=== PATIENT | male | born 1950 | race Caucasian/White ===

== ENCOUNTER → 2018-02-27 | Outpatient (CLI) | payer MEDICARE ==
[~2018-02-27] MED LIST: AMLO10 PO; ASPI325 PO; ASPI325EC PO; ATOR80 PO; Abilify2 MG PO; Abilify5 MG PO; Accupril40 MG PO; Aspirin EC325 MG PO; Augmentin 875-1 EACH PO; CENTRUM COMPLE1 EACH PO; CENTRUM SILVER1 EAC2 PO; CHOL10002 PO; COQ1050 MG PO; Carvedilol12.5 MG PO; Coreg12.5 MG PO; DESVENLAFAXINE50 M2 PO; FENO145 PO; FISH OIL 1,0001 EAC1 PO; FISH1000 PO; FOLI1 PO; FOLI400 PO; FURO20 PO; GABA300 PO; GLIM4 PO; HYDCHL12.5 PO; INVOKANA100 MG PO; K-Dur20 MEQ PO; METF500C PO; METFORMIN HCL1000 M1 PO; Multiple Vitam1 EAC1 PO; NITRO-STAT SL; Neurontin300 MG PO; Nitrostat0.4 MG SL; OXYC5 PO; PIOG45 PO; PROM25 PO; Percocet 5-3251 EACH PO; QUIN10 PO; ROXICODONE5 MG; ROXICODONE5 MG PO; UBID100 PO; VENL150ER; VENL75ER PO; VENLAFAXINE HC150 MG PO; VITAMIN C500 M1 PO; Vitamin C1000 M1 PO
[2018-02-27 17:09] LABS: BASOPHILS ABSOLUTE AUTO 0.03 K/mm3 (0.00-0.23); BASOPHILS PERCENT AUTO 0 % (0-2); EOSINOPHILS ABSOLUTE AUTO 0.06 K/mm3 (0.00-0.68); EOSINOPHILS PERCENT AUTO 1 % (0-6); Hematocrit 39.8 % (37.0-53.0); Hemoglobin 13.3 g/dL (13.5-17.5); IMMATURE GRAN ABSOLUTE AUTO 0.02 K/mm3 (0.00-0.10); IMMATURE GRAN PERCENT AUTO 0 % (0-1); LYMPHOCYTES ABSOLUTE AUTO 0.77 K/mm3 (0.84-5.20); LYMPHOCYTES PERCENT AUTO 9 % (21-46); MONOCYTES ABSOLUTE AUTO 0.71 K/mm3 (0.16-1.47); MONOCYTES PERCENT AUTO 8 % (4-13); Mean Corpuscular HGB 30.6 pg (26.0-34.0); Mean Corpuscular HGB Conc 33.4 g/dL (31.5-36.5); Mean Corpuscular Volume 92 fL (80-100); Mean Platelet Volume 10.5 fL (9.1-12.4); NEUTROPHILS PERCENT AUTO 82 % (41-73); Platelet Count 161 K/mm3 (150-400); RDW Coefficient Variation 13.4 % (11.7-14.2); RDW Standard Deviation 45.4 fL (35.1-46.3); Red Blood Cell Count 4.35 M/mm3 (4.30-5.90); White Blood Cell Count 8.79 K/mm3 (4.00-11.30)
[2018-02-27 17:20] LABS: Albumin, Blood 4.2 g/dL (3.4-5.0); Bilirubin, Total 0.8 mg/dL (0.1-1.0); Bun/Creatinine Ratio 12.8 (12.0-20.0); Calcium, Blood 9.2 mg/dL (8.5-10.1); Creatinine, Blood 1.33 mg/dL (0.60-1.20); Globulin, Blood 4.2 g/dL (2.2-4.0); Potassium, Blood 4.3 mmol/L (3.5-5.5); Total Protein, Blood 8.4 g/dL (6.4-8.2)
== END ==
LOC: LAB EV 16:59 → LAB SHORT 16:59
PROVIDERS: Physician Assistant
DX: R10.31 Right lower quadrant pain (principal)
CPT/HCPCS: 80053; 85025

== ENCOUNTER 2018-05-17 07:00 | Day surgery (SDC) | payer MEDICARE ==
[~2018-05-17] VITALS: Ht 170.2 cm; Wt 118.5 kg
== END 2018-05-17 09:20 | disposition home or self-care (01) ==
LOC: ORSCSDS 07:00
PROVIDERS: Internal Medicine Gastroenterology
PROC: 0DBN8ZX Excision of Sigmoid Colon, Via Natural or Artificial Opening Endoscopic, Diagnostic (ICD-10-PCS; principal; 2018-05-17 08:30)
PROC: 0DBL8ZX Excision of Transverse Colon, Via Natural or Artificial Opening Endoscopic, Diagnostic (ICD-10-PCS; principal; 2018-05-17 08:30)
DX: Z12.11 Encounter for screening for malignant neoplasm of colon (principal); D12.3 Benign neoplasm of transverse colon; K63.5 Polyp of colon; K64.8 Other hemorrhoids; I25.2 Old myocardial infarction; E11.9 Type 2 diabetes mellitus without complications; I10 Essential (primary) hypertension; E66.9 Obesity, unspecified; Z68.41 Body mass index [BMI] 40.0-44.9, adult; Z79.82 Long term (current) use of aspirin; Z79.84 Long term (current) use of oral hypoglycemic drugs; Z79.899 Other long term (current) drug therapy
CPT/HCPCS: 82947; 88305; J0330; J1980; J2405; J7120

== ENCOUNTER → 2019-06-13 | Outpatient (CLI) | payer MEDICARE | END | disposition home or self-care (01) | LOC: LAB SHORT 08:24 → PLD 08:24 | DX: C44.311 Basal cell carcinoma of skin of nose (principal); D09.8 Carcinoma in situ of other specified sites | CPT/HCPCS: 88305 ==

== ENCOUNTER → 2022-12-17 | Outpatient (CLI) | payer MEDICARE ==
[2022-12-17 15:27] LABS: BASOPHILS ABSOLUTE AUTO 0.04 K/mm3 (0.00-0.23); BASOPHILS PERCENT AUTO 1 % (0-2); EOSINOPHILS ABSOLUTE AUTO 0.37 K/mm3 (0.00-0.68); EOSINOPHILS PERCENT AUTO 7 % (0-6); Hematocrit 36.1 % (37.0-53.0); IMMATURE GRAN ABSOLUTE AUTO 0.01 K/mm3 (0.00-0.10); IMMATURE GRAN PERCENT AUTO 0 % (0-1); LYMPHOCYTES ABSOLUTE AUTO 1.37 K/mm3 (0.84-5.20); LYMPHOCYTES PERCENT AUTO 24 % (21-46); MONOCYTES ABSOLUTE AUTO 0.54 K/mm3 (0.16-1.47); MONOCYTES PERCENT AUTO 10 % (4-13); Mean Corpuscular HGB 30.1 pg (26.0-34.0); Mean Corpuscular HGB Conc 33.2 g/dL (31.5-36.5); Mean Corpuscular Volume 91 fL (80-100); Mean Platelet Volume 10.8 fL (9.1-12.4); NEUTROPHILS ABSOLUTE AUTO 3.37 K/mm3 (1.96-9.15); NEUTROPHILS PERCENT AUTO 59 % (41-73); Platelet Count 200 K/mm3 (150-400); RDW Standard Deviation 42.5 fL (35.1-46.3); Red Blood Cell Count 3.99 M/mm3 (4.30-5.90)
[2022-12-17 16:40] LABS: Percent Saturation 21.5 % (20.0-50.0)
== END | disposition home or self-care (01) ==
LOC: LAB SHORT 14:31 → LAB 14:31
PROVIDERS: Physician Assistant Medical
DX: E11.22 Type 2 diabetes mellitus with diabetic chronic kidney disease (principal); D64.9 Anemia, unspecified; D51.8 Other vitamin B12 deficiency anemias
CPT/HCPCS: 82607; 82728; 82746; 83036; 83540; 83550; 85025

== ENCOUNTER 2025-03-20 06:27 | Day surgery (SDC) | payer MEDICARE ==
[2025-03-20] VITALS (13 sets, daily range): BP systolic 118–156; BP diastolic 67–91
[~2025-03-20] VITALS: Ht 170.2 cm; Wt 99.4 kg
[~2025-03-20 06:27] MED LIST changes: +DORZOPSO BOTHEYES; +ELIQUIS5 M2 PO; +EZET10 PO; +Isosorbide Mono30 MG PO; +METO50ER; +METO50ER PO; +TRULICITY1.5 MG/0.1 SQ; +VENL150ER PO; -VENLAFAXINE HC150 MG PO; +ZESTRIL40 M1 PO
[2025-03-20] MEDS ORDERED: Verapamil HCL 2.5 MG/ML 2ML Injection ONE (07:01)
[2025-03-20] MEDS ORDERED: Nitroglycerin 2 MG/20 ML BTL ONE (07:02)
[2025-03-20] MEDS ORDERED: Heparin Sodium 1000 Units/ML 10ML MDV ONE (07:02)
[2025-03-20] MEDS ORDERED: NS 250 ML IV ONE (07:02)
[2025-03-20] MEDS ORDERED: NS 1,000 ML IV ONE ×2 (07:02→07:12)
[2025-03-20] MEDS ORDERED: FentaNYL Citrate 50 MCG/ML 2 ML Injection ONE (07:11)
[2025-03-20] MEDS ORDERED: Midazolam HCl 1MG / ML 2ML Vial ONE (07:11)
--- NOTE | 2025-03-20 09:10 | NUR ---
PT BACK TO RECOVERY ROOM. R GROIN SITE, SOFT AND NON TENDER. PT ALERT AND ORIENTED. PT FOLLOWING INSTRUCTIONS TO LAY SUPINE WITH LEGS AND HEAD DOWN. FAMILY TO BEDSIDE. PT UNATES 400 IN URINAL
--- NOTE | 2025-03-20 10:57 | NUR ---
PT SITTING UP 30 DEGRESS. SIPS OF WATER. FAMILY AT BEDSIDE.
--- NOTE | 2025-03-20 10:59 | NUR ---
PT ASSISTED WITH URINAL, 2OO CC OUT.
--- NOTE | 2025-03-20 11:24 | NUR ---
Pt resting comfortably. VSS. NADN. Pt R Femoral site remains C/D/I No bleeding or hematoma noted. Pt s/o at bedside. call light within reach.
--- NOTE | 2025-03-20 13:55 | NUR ---
PT AND S/O VERBALIZES UNDERSTANDING WRITTEN AND VERBAL INSTRUCTIONS. DENIES QUESTIONS OR CONCERNS. R FEMORAL SITE REMAINS C/D/I. VSS. NADN. PT IV DC'D. CATH INTACT. PRESURE DSG IN PLACE. PT DC TO HOME VIA S/O BY WC.
== END 2025-03-20 13:55 | disposition home or self-care (01) ==
LOC: MHTC 06:27
DX: I25.119 Atherosclerotic heart disease of native coronary artery with unspecified angina pectoris (principal); I25.82 Chronic total occlusion of coronary artery; I25.84 Coronary atherosclerosis due to calcified coronary lesion; T82.857A Stenosis of other cardiac prosthetic devices, implants and grafts, initial encounter; I48.91 Unspecified atrial fibrillation; E78.5 Hyperlipidemia, unspecified; E11.9 Type 2 diabetes mellitus without complications; I10 Essential (primary) hypertension; I77.810 Thoracic aortic ectasia; I65.23 Occlusion and stenosis of bilateral carotid arteries; Z79.01 Long term (current) use of anticoagulants; Z79.82 Long term (current) use of aspirin; Z79.84 Long term (current) use of oral hypoglycemic drugs; Z79.85 Long-term (current) use of injectable non-insulin antidiabetic drugs; Z79.899 Other long term (current) drug therapy; Z95.1 Presence of aortocoronary bypass graft; Z96.651 Presence of right artificial knee joint; Y83.1 Surgical operation with implant of artificial internal device as the cause of abnormal reaction of the patient, or of later complication, without mention of misadventure at the time of the procedure
CPT/HCPCS: 76937; 93459; 99152; 99153; C1760; C1769; C1894; J1644; J2250; J3010; J7030; J7050; Q9967